=== PATIENT | female | born 1950 | race Caucasian/White ===

== ENCOUNTER 2024-09-20 11:39 | Emergency (ER) | payer MEDICARE, MEDICAID, SELFPAY ==
[2024-09-20 11:43] VITALS: BP 169/77; PULSE 67; RESP 16; TEMP 36.9; O2SAT 100; BMI 39.2
--- NOTE | 2024-09-20 12:02 | ED_ITS ---
HPI - Extremity Problem <Aleks Hopkins PA-C - Last Filed: 09/20/24 14:31> General Chief complaint: Extremity Problem,Nontraumatic Stated complaint: sore on toe swollen and black Time Seen by Provider: 09/20/24 12:01 Source: patient Mode of arrival: Ambulatory History of Present Illness HPI Narrative: This is a 73-year-old female presenting emergency department due to infection of right 2nd toe. Patient states that she has been dealing with a ulceration to the tip of right 2nd digit for the last couple of months but noticed some redness around the cuticle onset last night. She was an appointment with Podiatry in a month and a half. She denies any fevers, nausea, vomiting, or other systemic symptoms. States she has peripheral neuropathy secondary to diabetes and has a very minimal sensation in her toes. Motor is intact. Related Data Previous Rx's Medication Instructions Recorded amoxicillin 875 mg-potassium 1 tab PO BID #20 tabs 09/20/24 clavulanate 125 mg tablet amoxicillin 875 mg-potassium 1 tab PO BID #20 tabs 09/20/24 clavulanate 125 mg tablet doxycycline hyclate 100 mg capsule 100 mg PO BID #20 caps 09/20/24 doxycycline hyclate 100 mg capsule 100 mg PO BID #20 caps 09/20/24 Allergies Allergy/AdvReac Type Severity Reaction Status Date / Time Sulfa (Sulfonamide Allergy Severe Anaphylaxis Verified 09/20/24 11:51 Antibiotics) nifedipine [From Procardia] AdvReac Severe Hypotension Verified 09/20/24 11:51 aspirin AdvReac Gastrointestinal Verified 09/20/24 11:51 Upset Review of Systems <Aleks Hopkins PA-C - Last Filed: 09/20/24 14:31> Review of Systems Narrative: GENERAL: Denies chills, fatigue, malaise, fever, sweats. HEENT: Denies sinus pain, ear pain, sore throat, difficulty swallowing, dizziness. RESPIRATORY: Denies dyspnea, cough, wheezing, hemoptysis, sputum. CARDIOVASCULAR: Denies chest pain, palpitations, orthopnea, edema, GASTROINTESTINAL: Denies nausea, vomiting, abdominal pain, diarrhea, constipation, melena. : Denies dysuria, frequency, incontinence, hematuria, urinary retention. MUSCULOSKELETAL: denies weakness, joint pain, or bony pain SKIN: Right toe ulceration NEUROLOGIC: Denies weakness, headache, numbness, change in speech, confusion, seizures, incoordination. PSYCHIATRIC: No concerning psychosocial issues. 12 point review of systems is negative except for those stated above Patient History <Aleks Hopkins PA-C - Last Filed: 09/20/24 14:31> Social History Smoking Status: Never smoker Smoking Status: Never smoker Exam <LULU Kirk Last Filed: 09/20/24 14:31> Narrative Exam Narrative: GENERAL: Well-developed patient, in mild distress. HEAD: Atraumatic. Normocephalic. EYES: Pupils equal round and reactive. Extraocular motions intact. No scleral icterus. No injection or drainage. ENT: Nose without bleeding, purulent drainage. Throat without erythema, tonsillar hypertrophy or exudate. Airway patent. NECK: Trachea midline. Non tender EXTREMITIES: No edema or joint tenderness. NEURO: AOx3. SKIN: Ulceration to the tip of the right 2nd digit. Some erythema just proximal to the cuticle of the toe. No drainage or discharge. No significant bony tenderness to palpation. Initial Vital Signs Initial Vital Signs: Vital Signs Temperature 98.5 F 09/20/24 11:43 Pulse Rate 67 09/20/24 11:43 Respiratory Rate 16 09/20/24 11:43 Blood Pressure 169/77 H 09/20/24 11:43 Pulse Oximetry 100 09/20/24 11:43 Oxygen Delivery Method Room Air 09/20/24 11:43 <Roldan Spivey DO - Last Filed: 09/20/24 14:53> Initial Vital Signs Initial Vital Signs: Vital Signs Temperature 98.5 F 09/20/24 11:43 Pulse Rate 67 09/20/24 11:43 Respiratory Rate 16 09/20/24 11:43 Blood Pressure 169/77 H 09/20/24 11:43 Pulse Oximetry 100 09/20/24 11:43 Oxygen Delivery Method Room Air 09/20/24 11:43 Course <Aleks Hopkins PA-C - Last Filed: 09/20/24 14:31> Orders Ordered: ED Orders 09/20/24 12:06 XR toe RT min 2V Stat Vital Signs Vital signs: Vital Signs - 8 hr 09/20/24 11:43 09/20/24 14:26 Temperature 98.5 F Pulse Rate 67 56 L Respiratory Rate 16 18 Blood Pressure 169/77 H 160/67 H Pulse Oximetry 100 98 Oxygen Delivery Method Room Air Room Air <Roldan Spivey DO - Last Filed: 09/20/24 14:53> Orders Ordered: ED Orders 09/20/24 12:06 XR toe RT min 2V Stat Vital Signs Vital signs: Vital Signs - 8 hr 09/20/24 11:43 09/20/24 14:26 Temperature 98.5 F Pulse Rate 67 56 L Respiratory Rate 16 18 Blood Pressure 169/77 H 160/67 H Pulse Oximetry 100 98 Oxygen Delivery Method Room Air Room Air MDM - Extremity (Nontraumatic) <Aleks Hopkins PA-C - Last Filed: 09/20/24 14:31> Imaging Data Extremity x-ray #1: Radiologist's Impression: [address] [address] XRay Report Signed Patient: Jeane Sewell MR#: [id number] : 1950 Acct:[id number] Age/Sex: 73 / F Date of Service: 09/20/24 Loc: ED Accession Number: [id number] Procedure: XR toe RT min 2V Ordering Provider: Aleks Hopkins PA-C PROCEDURE: XR TOE RT MIN 2V INDICATIONS: Rule out osteomyelitis TECHNIQUE: 3 views of the 2nd toe(s) acquired. COMPARISON: None. FINDINGS: Bones: No fractures or dislocations. No suspicious bony lesions. Soft tissues: No suspicious soft tissue densities. Tip of toe soft tissue swelling and possible small ulceration. No radiopaque foreign body. No soft tissue gas. IMPRESSION: No plain film evidence of acute osteomyelitis. No acute bony abnormality. Dictated by: Joshua Gonzales M.D. on 09/20/2024 at 14:03 Approved by: Joshua Gonzales M.D. on 09/20/2024 at 14:05 [facility] Narrative Medical decision making narrative: ED course: 73-year-old female presents to the emergency department due to infected toe ulcer. Patient is diabetic. She appears to have a ulceration to the right 2nd toe with some mild surrounding cellulitis. We will treat with Augmentin doxycycline per up-to-date. Anaphylactic Bactrim allergy. X-ray shows no evidence of osteomyelitis. CC: Toe infection Complicating co-morbidities: Diabetes Data collected from: Previous notes Medical records reviewed: Patient was not been to this emergency department the past. Differential considered, but not limited to: Osteomyelitis, do not infection, abscess Exam documented above, pertinent findings include: No evidence of abscess Lab Test results independently reviewed as above. Pertinent findings: None obtained Imaging studies independently reviewed: X-ray negative for osteomyelitis Scores Used: None MIPS Elements: None Consultations: None Treatments: None Re-evaluations: None Discussion: Discussed plan with the patient was comfortable with the plan Diagnosis: Toe infection Disposition: see below, along with detailed discharge instructions that have been reviewed with patient as well as indications for ED re-evaluation and additional outpatient follow up Discharge Plan Departure Patient Disposition: Home Clinical Impression: Infection of toe Instructions: DI for Cellulitis -- Adult Activity Restrictions/Additional Instructions: Thank you for coming to the [facility] Emergency Department today. Please take both of the antibiotics as prescribed. Please call your director of group sales daily to arrange for sooner appointment in case of any cancellations. Please take the Augmentin and doxycycline. Please return to the emergency department if you develop any worsening redness, fevers, or any other concerning signs or symptoms. I hope you feel better soon. Please follow up with your primary care provider within a week if your symptoms continue. If you do not have a primary care provider please contact the [facility] Resource line at [phone]. They will ask some questions about your medical history and help you get set up with a provider in the community. Prescriptions: New amoxicillin-pot clavulanate 875-125 mg tablet 1 tab PO BID Qty: 20 0RF doxycycline hyclate 100 mg capsule 100 mg PO BID Qty: 20 0RF amoxicillin-pot clavulanate 875-125 mg tablet 1 tab PO BID Qty: 20 0RF doxycycline hyclate 100 mg capsule 100 mg PO BID Qty: 20 0RF Referrals: Taryn Sim PA-C [Primary Care Provider] - Stand Alone Forms: Patient Portal/API/Survey ED Sign-out <Roldan Spivey DO - Last Filed: 09/20/24 14:53> Cosign ED Attending Cosignature Attestation: Dr Spivey Co-Sign Statement: I was available for consultation during this patient's emergency department visit. This chart is signed by myself for administrative purposes only. I did not have direct contact with this patient during this visit. They were seen independently by the APC.
--- NOTE | 2024-09-20 12:03 | PC.NURSE ---
Patient has T2DM and is taking giardiance and metformin. She has neuropathy in both feet. She is unable to feel the last 2 of both of her feet including he toes. she has an ulceration on the pad of her right distal 2nd toe. The toe is slightly swollen and red and is focal to the toe itself. Redness does not extend proximally in the foot.
--- NOTE | 2024-09-20 12:06 | DI.RAD.S_ITS ---
PROCEDURE: XR TOE RT MIN 2V INDICATIONS: Rule out osteomyelitis TECHNIQUE: 3 views of the 2nd toe(s) acquired. COMPARISON: None. FINDINGS: Bones: No fractures or dislocations. No suspicious bony lesions. Soft tissues: No suspicious soft tissue densities. Tip of toe soft tissue swelling and possible small ulceration. No radiopaque foreign body. No soft tissue gas. IMPRESSION: No plain film evidence of acute osteomyelitis. No acute bony abnormality. Dictated by: Joshua Gonzales M.D. on 09/20/2024 at 14:03 Approved by: Joshua Gonzales M.D. on 09/20/2024 at 14:05
[2024-09-20 14:26] VITALS: BP 160/67; PULSE 56; RESP 18; O2SAT 98
== END 2024-09-20 14:39 | disposition home or self-care (01) ==
PROVIDERS: Emergency Provider Physician Assistant Medical; PCP Physician Assistant
DX: L08.9 Local infection of the skin and subcutaneous tissue, unspecified (principal)
CPT/HCPCS: 73660; 99281; 99283

== ENCOUNTER 2025-06-28 14:24 | Emergency (ER) | payer MEDICARE, MEDICAID, SELFPAY ==
[2025-06-28 14:37] VITALS: BP 219/116; PULSE 94; RESP 16; TEMP 36.4; O2SAT 100; BMI 37.4
[2025-06-28 16:52] VITALS: BP 225/108
--- NOTE | 2025-06-28 17:17 | PC.NURSE ---
call from waiting area x 2 w/o answer
== END 2025-06-28 17:18 | disposition left against medical advice (07) ==
PROVIDERS: Emergency Provider Emergency Medicine; PCP Physician Assistant
CPT/HCPCS: 99281

== ENCOUNTER → 2025-07-30 08:53 | Outpatient (CLI) | payer MEDICARE, MEDICAID, SELFPAY ==
[2025-07-30 10:22] LABS: Hematocrit 37.0 % (36-46); Hemoglobin 12.1 g/dL (12.0-16.0); Mean Corpuscular HGB Conc 32.6 % (30-36); Mean Corpuscular Hemoglobin 28.3 PG (26-34); Mean Corpuscular Volume 86.7 fL (80-100); Platelet Count 268 X10^3/uL (150-400)
[2025-07-30 10:43] LABS: Blood Urea Nitrogen 16 mg/dL (7-17); Calcium 9.3 mg/dL (8.4-10.2); Carbon Dioxide 26 mmol/L (22-32); Chloride 100 mmol/L (98-107); Cholesterol 149 mg/dL (140-199); Estimated Glomerular Filt Rate 55 mL/min (>60); Glucose 149 mg/dL (70-99); HDL Cholesterol 52 mg/dL (40-60); HEMOLYSIS < 15 (0-50); Potassium 4.8 mmol/L (3.4-5.1); Sodium 137 mmol/L (137-145); Triglycerides 180 mg/dL (35-150)
== END ==
PROVIDERS: PCP Physician Assistant; Referring Provider Physician Assistant; Visit Provider Internal Medicine Cardiovascular Disease
DX: E78.5 Hyperlipidemia, unspecified (principal); I10 Essential (primary) hypertension
CPT/HCPCS: 36415; 80048; 80061; 85027